=== PATIENT | female | born 1955 | race Two or more races ===

== ENCOUNTER 2017-06-26 11:39 | Emergency (ER) | payer SELFPAY ==
[~2017-06-26] VITALS: Ht 160 cm; Wt 65.8 kg
[2017-06-26 12:12] VITALS: BP 178/91
[2017-06-26] MEDS ORDERED: DOXY100C2 PO (12:13)
--- NOTE | 2017-06-26 12:13 | PHYS DOC ---
Past Medical History Past Medical History: Arthritis, Diabetes-Type II Past Surgical History: No Surgical History Alcohol Use: None Drug Use: None Adult General Chief Complaint Chief Complaint: Congestion HPI HPI Patient is a 61 year old female presents to the emergency department stating that she has had nasal congestion for the last 2 weeks. She has taken Sudafed with no relief. Patient does have a history of high blood pressure however patient it has been did not know the medications she is on. Patient is Burmese- speaking only. is interpreting. He states that she has had a low-grade fever of 100 for the last 2 days. He denies any nausea vomiting. Review of Systems Review of Systems Constitutional: Denies fever or chills [] Eyes: Denies change in visual acuity, redness, or eye pain [] HENT: nasal congestion denies sore throat [] Respiratory: Denies cough or shortness of breath [] Cardiovascular: No additional information not addressed in HPI [] GI: Denies abdominal pain, nausea, vomiting, bloody stools or diarrhea [] : Denies dysuria or hematuria [] Musculoskeletal: Denies back pain or joint pain [] Integument: Denies rash or skin lesions [] Neurologic: Denies headache, focal weakness or sensory changes [] Endocrine: Denies polyuria or polydipsia [] Allergies Allergies Allergies Coded Allergies Type Severity Reaction Last Updated Verified No Known Drug Allergies 08/25/14 No Physical Exam Physical Exam Constitutional: Well developed, well nourished, no acute distress, non-toxic appearance. [] HENT: Normocephalic, atraumatic, bilateral external ears normal, oropharynx moist, no oral exudates, nose normal. Bilateral tympanic membranes appear to be normal. Patient with frontal and maxillary sinus pressure bilaterally. Throat with postnasal drip. No erythematous no exudate noted. Eyes: PERRLA, EOMI, conjunctiva normal, no discharge. [] Neck: Normal range of motion, no tenderness, supple, no stridor. [] Cardiovascular:Heart rate regular rhythm, no murmur [] Lungs & Thorax: Bilateral breath sounds clear to auscultation [] Skin: Warm, dry, no erythema, no rash. [] Back: No tenderness Extremities: No tenderness, no cyanosis, no clubbing, ROM intact, no edema. [] Neurologic: Alert and oriented X 3, normal motor function, normal sensory function, no focal deficits noted. [] Psychologic: Affect normal, judgement normal, mood normal. [] EKG EKG [] Radiology/Procedures Radiology/Procedures [] Course & Med Decision Making Course & Med Decision Making Pertinent Labs and Imaging studies reviewed. (See chart for details) Patient will be discharged home with prescription for doxycycline. Recommended Sudafed and Mucinex DM [id number] recommended plenty of fluids. Tylenol or ibuprofen for fever chills or generalized body aches and discomfort. Recommended following up with her primary care physician in the next week. Since symptoms to return back to emergency department as been provided. All questions and concerns been answered at patient's bedside. [] Dragon Disclaimer Dragon Disclaimer This electronic medical record was generated, in whole or in part, using a voice recognition dictation system. Departure Departure Impression: Primary Impression: Sinusitis Disposition: HOME, SELF-CARE Condition: STABLE Referrals: SUMMER THOMPSON MD (PCP) Patient Instructions: Sinusitis, [id number] Additional Instructions: Activity as tolerated. Medication as prescribed. Sudafed and Mucinex DM as directed by medical csr [id number]. Drink plenty of fluids. Follow-up to primary care physician in the next week. Return back to emergency prior signs symptoms of become worse. Scripts Doxycycline Hyclate (DOXYCYCLINE HYCLATE) 100 Mg Capsule 1 CAP PO BID, #20 CAP Prov: OLI HASTINGS APRN 06/26/17 Problem Qualifiers Primary Impression: Sinusitis Sinusitis location: unspecified location Chronicity: unspecified Qualified Codes: J32.9 - Chronic sinusitis, unspecified OLI HASTINGS UNDER TRIMMER Jun 26, 2017 12:13
== END 2017-06-26 12:20 | disposition home or self-care (01) ==
LOC: ER 11:39
DX: J32.0 Chronic maxillary sinusitis (principal); J32.1 Chronic frontal sinusitis; M19.90 Unspecified osteoarthritis, unspecified site; E11.9 Type 2 diabetes mellitus without complications
CPT/HCPCS: 99283

== ENCOUNTER 2019-01-01 14:20 | Emergency (ER) | payer OTHER ==
[~2019-01-01] VITALS: Ht 160 cm; Wt 62.1 kg
[~2019-01-01 14:20] MED LIST: DOXY100C2 PO
--- NOTE | 2019-01-01 15:39 | PHYS DOC ---
Past Medical History Past Medical History: Arthritis, Diabetes-Type II Past Surgical History: No Surgical History Alcohol Use: None Drug Use: None Adult General Chief Complaint Chief Complaint: FLU SYMPTOM HPI HPI 63-year-old female presents to ER via POV with complaints of flulike illness is been ongoing for the past 3-4 days. Patient speaks primarily Anguillan and her is at bedside translating. Per him patient has been sick the past 3-4 days with flulike illness which has included body aches, nonproductive cough, intermittent headache, and upper abdominal pain which increases with coughing episodes. He denies patient with nausea vomiting or diarrhea. Patient had regular bowel movement this morning. He denies patient has had urinary symptoms or fever. He reports patient has had generalized fatigue. He denies recent travel. He reports he had similar flulike illness last week. He states patient has had decreased appetite and fluid intake. She denies any chest pain, palpitations, or shortness of air. On arrival patient was ambulatory to room 14 from waiting room. Patient had Accu -Chek of 52 and so juice was provided. Patient was able to drink the juice denying any nausea. Patient reports history of diabetes reporting she is on oral medications and insulin. She reports she took her regular dose of insulin today and her added she had not eaten due to illness. Review of Systems Review of Systems Constitutional: Denies fever or chills. Reports generalized fatigue and body aches Eyes: Denies change in visual acuity, redness, or eye pain [] HENT: Reports sinus congestion/sore throat. Denies earache Respiratory: Denies shortness of breath. Reports nonprod. cough Cardiovascular: Denies CP/palpitations GI: Denies nausea, vomiting, bloody stools or diarrhea. Reports upper abd pain : Denies dysuria or hematuria [] Musculoskeletal: Reports body aches w/joint aches- denies difficulty with ROM of neck/back Integument: Denies rash, swelling or skin lesions [] Neurologic: Denies focal weakness or sensory changes. Reports diffuse PETERS without photosensitivity/floaters Endocrine: Denies polyuria or polydipsia [] All other systems were reviewed and found to be within normal limits, except as documented in this note. Current Medications Current Medications Current Medications Medications (Trade) Dose Ordered Sig/Marcella Start Time Stop Time Status Last Admin Dose Admin Ceftriaxone Sodium (Rocephin) 1 gm 1X ONCE 01/01/19 17:00 01/01/19 17:01 DC 01/01/19 17:37 1 GM Ibuprofen (Motrin) 600 mg 1X ONCE 01/01/19 15:45 01/01/19 15:46 DC 01/01/19 16:20 600 MG Sodium Chloride 1,000 ml @ 1,000 mls/hr 1X ONCE 01/01/19 15:45 01/01/19 16:44 DC 01/01/19 15:45 1,000 MLS/HR Allergies Allergies Allergies Coded Allergies Type Severity Reaction Last Updated Verified No Known Drug Allergies 08/25/14 No Physical Exam Physical Exam Constitutional: Well developed, well nourished, mild distress- fatigued appearance, non-toxic appearance. Answering questions appropr. per her husb. who is translating as pt speaks minimal Burkinan HENT: Normocephalic, atraumatic, bilateral ears normal, mucous membranes pink/ dry, no pharyngeal erythema/swelling/exudate, nose normal. [] Eyes: 3mm PERRLA, EOMI- no pain w/eye movements, no nystagmus, conjunctiva normal, no discharge. [] Neck: Normal range of motion, no tenderness- no nuchal rigidity, supple, no stridor/gross adenopathy Cardiovascular: Heart rate regular rhythm, no murmur [] Lungs & Thorax: Bilateral breath sounds clear to auscultation. Resp. equal/ nonlabored. Speaking in full sentences Abdomen: Bowel sounds normal, soft- no distention or rigidity, diffuse tenderness across upper abd. no specific area. No rebound tenderness, no masses , no pulsatile masses. [] Skin: Warm, dry, no erythema, no rash. [] Back: No tenderness- full ROM, no CVA tenderness. [] Extremities: No tenderness, no cyanosis, no clubbing, ROM intact, no edema. [] Neurologic: Alert and oriented X 3, normal motor function, normal sensory function, no focal deficits noted. [] Psychologic: Affect normal, judgement normal, mood normal. [] Current Patient Data Vital Signs Vital Signs Date Time Temp Pulse Resp B/P (MAP) Pulse Ox O2 Delivery O2 Flow Rate FiO2 01/01/19 17:27 80 21 144/70 (94) 96 Room Air 3/23/19 15:10 98.7 98.7 Lab Values Laboratory Tests Test 01/01/19 15:21 01/01/19 15:52 01/01/19 15:53 01/01/19 16:00 Glucose (Fingerstick) 52 mg/dL (70-99) L Urine Collection Type Unknown Urine Color Yellow Urine Clarity Clear Urine pH 6.5 Urine Specific [place] 1.010 Urine Protein Negative mg/dL (NEG-TRACE) Urine Glucose (UA) Negative mg/dL (NEG) Urine Ketones (Stick) Negative mg/dL (NEG) Urine Blood Negative (NEG) Urine Nitrite Positive (NEG) Urine Bilirubin Negative (NEG) Urine Urobilinogen Dipstick 0.2 mg/dL (0.2 mg/dL) Urine Leukocyte Esterase Small (NEG) Urine RBC 0 /HPF (0-2) Urine WBC >40 /HPF (0-4) Urine Squamous Epithelial Cells Mod /LPF Urine Bacteria Many /HPF (0-FEW) Urine Mucus Slight /LPF Influenza Type A Antigen Negative (NEGATIVE) Influenza Type B Antigen Negative (NEGATIVE) White Blood Count 15.4 x10^3/uL (4.0-11.0) H Red Blood Count 5.08 x10^6/uL (3.50-5.40) Hemoglobin 14.5 g/dL (12.0-15.5) Hematocrit 43.2 % (36.0-47.0) Mean Corpuscular Volume 85 fL (79-100) Mean Corpuscular Hemoglobin 29 pg (25-35) Mean Corpuscular Hemoglobin Concent 34 g/dL (31-37) Red Cell Distribution Width 13.3 % (11.5-14.5) Platelet Count 299 x10^3/uL (140-400) Neutrophils (%) (Auto) 44 % (31-73) Lymphocytes (%) (Auto) 40 % (24-48) Monocytes (%) (Auto) 12 % (0-9) H Eosinophils (%) (Auto) 4 % (0-3) H Basophils (%) (Auto) 0 % (0-3) Neutrophils # (Auto) 6.8 x10^3uL (1.8-7.7) Lymphocytes # (Auto) 6.2 x10^3/uL (1.0-4.8) H Monocytes # (Auto) 1.8 x10^3/uL (0.0-1.1) H Eosinophils # (Auto) 0.6 x10^3/uL (0.0-0.7) Basophils # (Auto) 0.1 x10^3/uL (0.0-0.2) Sodium Level 140 mmol/L (136-145) Potassium Level 3.4 mmol/L (3.5-5.1) L Chloride Level 104 mmol/L (98-107) Carbon Dioxide Level 27 mmol/L (21-32) Anion Gap 9 (6-14) Blood Urea Nitrogen 17 mg/dL (7-20) Creatinine 1.3 mg/dL (0.6-1.0) H Estimated GFR (Cockcroft-Gault) 41.6 BUN/Creatinine Ratio 13 (6-20) Glucose Level 84 mg/dL (70-99) Calcium Level 9.4 mg/dL (8.5-10.1) Magnesium Level 1.9 mg/dL (1.8-2.4) Total Bilirubin 0.2 mg/dL (0.2-1.0) Aspartate Amino Transferase (AST) 17 U/L (15-37) Alanine Aminotransferase (ALT) 24 U/L (14-59) Alkaline Phosphatase 124 U/L (46-116) H Troponin I Quantitative < 0.017 ng/mL (0.000-0.055) Total Protein 7.5 g/dL (6.4-8.2) Albumin 3.5 g/dL (3.4-5.0) Albumin/Globulin Ratio 0.9 (1.0-1.7) L Test 01/01/19 17:15 Glucose (Fingerstick) 94 mg/dL (70-99) Laboratory Tests 01/01/19 16:00 Laboratory Tests 01/01/19 16:00 EKG EKG EKG obtained 01/01/19 at [address] Turner Sinus rhythm Rate 91 No STEMI Radiology/Procedures Radiology/Procedures PROCEDURE: CHEST AP ONLY Chest radiograph 01/01/2019 3:31 PM INDICATION: Cough COMPARISON: None available TECHNIQUE: Portable upright frontal view of the chest is provided. FINDINGS: The cardiomediastinal silhouette is within normal limits. There are no pleural effusions. There is no pulmonary vascular congestion. There is no pneumothorax. The lungs are clear. No significant osseous abnormality is identified. IMPRESSION: No acute cardiopulmonary process. Electronically signed by: Melanie Larios MD (01/01/2019 4:03 PM) [facility] [place] DICTATED and SIGNED BY: MELANIE LARIOS MD DATE: 01/01/19 1604 Course & Med Decision Making Course & Med Decision Making Pertinent Labs and Imaging studies reviewed. (See chart for details) 1655: On reevaluation patient remains fatigued in appearance. She continues to have nonproductive intermittent cough. Discussed test results with UTI and plans for IV Rocephin. Patient was negative flu. Patient's blood sugar was 84 on her labs after drinking juice. Patient's states she had been started on 10 units of insulin with meals and 30 units at bedtime just within the past couple of weeks as her BSs had been 500-600. Patient reports she had eaten breakfast and lunch. Pt continues to deny CP/SOA. 1745: Reevaluation patient reports she is feeling much better following txs. She is smiling and sitting up in bed- husb. reports she is doing much better. Patient was given IV fluids, ibuprofen, and dose of Rocephin for UTI. Patient had chest x-ray which was negative for acute findings. She was negative for flu. WBCs were elevated at 15.4 no bands. EKG was negative for acute ST elevation or STEMI and troponin was <0.017. Patient reports she is feeling comfortable with home discharge and is ready to leave as she is hungry. She reports PETERS subsided and currently is denying any pain. Will provide prescription for Keflex for UTI and advised patient on follow-up with her primary care physician this week for reevaluation. Discussed with patient's husb. having flulike illness last week she is probably has similar flu like illness along with UTI. Discussed Tylenol and/or ibuprofen as needed. Patient encouraged to increase fluid intake and eat well-balanced meals. Pt had K+ of 3.4- no replacement while in the ER as pt plans to eat after being discharged. Patient encouraged to continue monitoring her blood sugar and if feeling more fatigued to recheck as her initial blood sugar was 52 when she arrived to ER. Patient has been eating and drinking without complaints of nausea while in the ER and last check blood sugar was 94. Education provided on signs and symptoms to return to ER. Discharge instructions were discussed. Dragon Disclaimer Dragon Disclaimer This electronic medical record was generated, in whole or in part, using a voice recognition dictation system. Departure Departure Impression: Primary Impression: UTI (urinary tract infection) Additional Impression: Flu-like symptoms Disposition: HOME, SELF-CARE Condition: STABLE Referrals: SUMMER THOMPSON MD (PCP) Patient Instructions: Hypoglycemia (Low Blood Sugar), Urinary Tract Infection, Viral Syndrome Additional Instructions: Continue monitoring your blood sugar and if he started feeling more fatigued or have any concerns recheck the blood sugar again. Increase water intake and eat well-balanced meals. Follow-up with your primary care physician this week for reevaluation or return to the emergency department if symptoms worsen. Tylenol and/or ibuprofen as directed on container as needed for pain and fever control. Scripts Cephalexin (KEFLEX) 500 Mg Capsule 1 CAP PO BID, #14 CAP 0 Refills Prov: CHALINO KAY APRN 01/01/19 Problem Qualifiers CHALINO KAY APRN Jan 01, 2019 15:39
[2019-01-01] MEDS ORDERED: IV NORMAL SALINE 1000ML BAG 1,000 ML IV ONE (15:45)
[2019-01-01] MEDS ORDERED: IBUPROFEN 200 MG TABLET. PO ONE (15:45)
--- NOTE | 2019-01-01 16:05 | RAD ---
Chest radiograph 01/01/2019 3:31 PM INDICATION: Cough COMPARISON: None available TECHNIQUE: Portable upright frontal view of the chest is provided. FINDINGS: The cardiomediastinal silhouette is within normal limits. There are no pleural effusions. There is no pulmonary vascular congestion. There is no pneumothorax. The lungs are clear. No significant osseous abnormality is identified. IMPRESSION: No acute cardiopulmonary process. Electronically signed by: Reyna Dominguez MD (01/01/2019 4:03 PM) [facility] [place]
[2019-01-01 16:15] LABS: BASO # 0.1 x10^3/uL (0.0-0.2); BASO % 0 % (0-3); EOS # 0.6 x10^3/uL (0.0-0.7); EOS % 4 % (0-3); HEMATOCRIT 43.2 % (36.0-47.0); HEMOGLOBIN 14.5 g/dL (12.0-15.5); LYMPH # 6.2 x10^3/uL (1.0-4.8); LYMPH % 40 % (24-48); MEAN CORPUSCULAR HEMOGLOBIN 29 pg (25-35); MEAN CORPUSCULAR HGB CONC 34 g/dL (31-37); MEAN CORPUSCULAR VOLUME 85 fL (79-100); MONO # 1.8 x10^3/uL (0.0-1.1); MONO % 12 % (0-9); NEUT # 6.8 x10^3uL (1.8-7.7); NEUT % 44 % (31-73); PLATELET COUNT 299 x10^3/uL (140-400); RED BLOOD COUNT 5.08 x10^6/uL (3.50-5.40); RED CELL DISTRIBUTION WIDTH 13.3 % (11.5-14.5); WHITE BLOOD COUNT 15.4 x10^3/uL (4.0-11.0)
[2019-01-01 16:22] LABS: BILIRUBIN,URINE NEGATIVE (NEG); CLARITY,URINE CLEAR; COLOR,URINE YELLOW; NITRITE,URINE POSITIVE (NEG); PH,URINE 6.5; PROTEIN,URINE NEGATIVE (NEG-TRACE); UROBILINOGEN,URINE 0.2 mg/dL (0.2 mg/dL)
[2019-01-01 16:25] LABS: CALCIUM 9.4 mg/dL (8.5-10.1); CREATININE 1.3 mg/dL (0.6-1.0); GFR 41.6; POTASSIUM 3.4 mmol/L (3.5-5.1)
[2019-01-01 16:29] LABS: SQUAMOUS EPITHELIAL CELL,UR MOD /LPF
[2019-01-01 16:30] LABS: BACTERIA,URINE MANY /HPF (0-FEW); RBC,URINE 0 /HPF (0-2); WBC,URINE >40 /HPF (0-4)
[2019-01-01 16:31] LABS: ALBUMIN 3.5 g/dL (3.4-5.0); ALBUMIN/GLOBULIN RATIO 0.9 (1.0-1.7); MAGNESIUM 1.9 mg/dL (1.8-2.4); TOTAL BILIRUBIN 0.2 mg/dL (0.2-1.0); TOTAL PROTEIN 7.5 g/dL (6.4-8.2)
[2019-01-01 16:45] LABS: INFLUENZA A PATIENT NEGATIVE (NEGATIVE); INFLUENZA B PATIENT NEGATIVE (NEGATIVE)
[2019-01-01] MEDS ORDERED: cefTRIAXone IV Push 1 GM VIAL. IVP ONE (17:00)
[2019-01-01 17:27] VITALS: BP 144/70
[2019-01-01] MEDS ORDERED: CEPH-264 PO (17:54)
--- NOTE | 2019-01-03 13:07 | EKG ---
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
== END 2019-01-01 18:09 | disposition home or self-care (01) ==
LOC: ER 14:20
DX: N39.0 Urinary tract infection, site not specified (principal); R05 Cough; M79.10 Myalgia, unspecified site; R51 Headache; R53.83 Other fatigue; E11.9 Type 2 diabetes mellitus without complications; Z79.4 Long term (current) use of insulin
CPT/HCPCS: 36415; 71045; 80053; 81001; 82962; 83735; 84484; 85025; 87086; 87186; 87804; 93005; 96374; 99284; J0696; J7030

== ENCOUNTER 2019-06-12 10:07 | Emergency (ER) | payer OTHER ==
[~2019-06-12] VITALS: Ht 162.6 cm; Wt 62.1 kg
[~2019-06-12 10:07] MED LIST changes: +CEPH-264 PO; +FLUTICASONE 50MCG/NASAL SPRAY 16GM BOTTLE. NS ONE
[2019-06-12 10:10] VITALS: BP 179/85
--- NOTE | 2019-06-12 10:27 | PHYS DOC ---
Past Medical History Past Medical History: Arthritis, Diabetes-Type II, Hypertension Past Surgical History: No Surgical History Alcohol Use: None Drug Use: None Adult General Chief Complaint Chief Complaint: COUGH HPI HPI Patient is a 63 year old female who presents with 3 days of runny nose, congestion, right ear pressure, sore throat, and itching. No fevers or SOB Dry persistent cough. Reports hx of bronchitis. No chronic lung disease Reports she is a DM and wants a glucose check Review of Systems Review of Systems Constitutional: Denies fever or chills [] Eyes: Denies change in visual acuity, redness, or eye pain []Intermitted watery eyes/itching. HENT: c/o nasal congestion and sore throat [] Respiratory: Denies shortness of breath Intermittent. cough, dry, persistent Cardiovascular: No additional information not addressed in HPI [] GI: Denies abdominal pain, nausea, vomiting, bloody stools or diarrhea [] : Denies dysuria or hematuria [] Musculoskeletal: Denies back pain or joint pain [] Integument: Denies rash or skin lesions [] Neurologic: Denies focal weakness or sensory changes []dull frontal pressure Endocrine: Denies polyuria or polydipsia [] All other systems were reviewed and found to be within normal limits, except as documented in this note. Current Medications Current Medications Current Medications Medications (Trade) Dose Ordered Sig/Marcella Start Time Stop Time Status Last Admin Dose Admin Acetaminophen (Tylenol) 500 mg 1X ONCE 06/12/19 10:30 06/12/19 10:31 DC 06/12/19 10:32 500 MG Diphenhydramine HCl (Benadryl) 25 mg 1X ONCE 06/12/19 10:30 06/12/19 10:31 DC 06/12/19 10:32 25 MG Fluticasone Propionate (Flonase) 2 spray 1X ONCE 06/12/19 09:00 06/12/19 10:27 DC 06/12/19 10:32 2 SPRAY Allergies Allergies Allergies Coded Allergies Type Severity Reaction Last Updated Verified No Known Drug Allergies 08/25/14 No Physical Exam Physical Exam Constitutional: Well developed, well nourished, no acute distress, non-toxic appearance. [] HENT: Normocephalic, atraumatic, bilateral external ears normal, bilateral TM dull, oropharynx moist, no oral exudates, mild posterior pharynx erythema, PND, nose congestion, clear rhinorrhea Eyes: PERRLA, EOMI, conjunctiva normal, no discharge. [] Neck: Normal range of motion, no tenderness, supple, no stridor. [] Cardiovascular:Heart rate regular rhythm, no murmur [] Lungs & Thorax: Bilateral breath sounds clear to auscultation []No current cough Abdomen: Bowel sounds normal, soft, no tenderness, no masses, no pulsatile masses. [] Skin: Warm, dry, no erythema, no rash. [] Back: No tenderness, no CVA tenderness. [] Extremities: No tenderness, no cyanosis, no clubbing, ROM intact, no edema. [] Neurologic: Alert and oriented X 3, normal motor function, normal sensory function, no focal deficits noted. [] Psychologic: Affect normal, judgement normal, mood normal. [] Current Patient Data Vital Signs Vital Signs Date Time Temp Pulse Resp B/P (MAP) Pulse Ox O2 Delivery O2 Flow Rate FiO2 06/12/19 10:10 98.7 77 16 179/85 (116) 99 Room Air 98.7 Lab Values Laboratory Tests Test 06/12/19 10:31 Glucose (Fingerstick) 152 mg/dL (70-99) H EKG EKG [] Radiology/Procedures Radiology/Procedures [] Impressions: Allergic rhinitis, URI, cough Course & Med Decision Making Course & Med Decision Making Patient appears well, no fevers. Allergic rhinitis and URI, no cough on exam Lungs CTA Stable for home care OTC medications for symptoms, educated on home care fu and reasons to return to the ER Laboratory Tests Test 06/12/19 10:31 Glucose (Fingerstick) 152 mg/dL (70-99) H Pertinent Labs and Imaging studies reviewed. (See chart for details) [] Dragon Disclaimer Dragon Disclaimer This electronic medical record was generated, in whole or in part, using a voice recognition dictation system. Departure Departure Impression: Primary Impression: Allergic rhinitis Disposition: 01 HOME, SELF-CARE Condition: STABLE Referrals: SUMMER THOMPSON MD (PCP) Patient Instructions: Allergic Rhinitis, Upper Respiratory Infection, Adult Additional Instructions: Go home and rest. Motrin and Tylenol for pain or fever Over the counter Benadryl, Claritin for symptoms Albuterol as directed. Call your doctor for follow up, return for any concerns or worsening symptoms MELODY PONCE APRN Jun 12, 2019 10:27
[2019-06-12] MEDS ORDERED: ACETAMINOPHEN 500 MG TABLET PO ONE (10:30)
[2019-06-12] MEDS ORDERED: diphenhydrAMINE HCL 25 MG CAPSULE PO ONE (10:30)
== END 2019-06-12 10:50 | disposition home or self-care (01) ==
LOC: ER 10:07
DX: J30.9 Allergic rhinitis, unspecified (principal); E11.9 Type 2 diabetes mellitus without complications; I10 Essential (primary) hypertension
CPT/HCPCS: 82962; 99284; Q0163

== ENCOUNTER 2020-04-19 00:27 | Emergency (ER) | payer OTHER ==
[~2020-04-19 00:27] MED LIST changes: -FLUTICASONE 50MCG/NASAL SPRAY 16GM BOTTLE. NS ONE
== END 2020-04-19 03:40 | disposition left against medical advice (07) ==
LOC: ER 00:27
DX: M54.9 Dorsalgia, unspecified (principal); Z53.21 Procedure and treatment not carried out due to patient leaving prior to being seen by health care provider

== ENCOUNTER → 2020-05-30 | Outpatient (CLI) | payer OTHER ==
--- NOTE | 2020-06-01 10:58 | RAD ---
EXAM: BILATERAL DIGITAL SCREENING MAMMOGRAPHY. HISTORY: Routine mammographic screening. TECHNIQUE: Bilateral full field digital images were obtained in CC and MLO projections. Computer-aided detection was not available currently. COMPARISON: None available. This is interpreted as a baseline study. COMPOSITION: B. There are scattered areas of fibroglandular density. FINDINGS: There are no suspicious masses, microcalcifications or architectural distortion. The parenchymal pattern is stable. Coarse and vascular calcifications are benign. BI-RADS CATEGORY 2: Benign. RECOMMENDATION: 1. Routine screening mammography in one year. If mammography demonstrates dense breast tissue (heterogenously dense or extremely dense, category C or D), which could hide abnormalities, and if other risk factors for breast cancer have been identified, supplemental screening tests that may be suggested by the ordering physician may be of benefit. Dense breast tissue, in and of itself, is a relatively common condition. Therefore, this information is not provided to cause undue concern, but rather to raise awareness and to promote discussion with the referring physician regarding the presence of other risk factors, in addition to dense breast tissue. The results of this mammography examination is provided to the patient and referring physician. The patient should contact their referring physician if any questions or concerns exist regarding this report. PQRS compliance statement - Patient information was entered into a reminder system with a target due date for the next mammogram. "Our facility is accredited by the [employer] Mammography [employer]." Electronically signed by: Nataliya Nascimento MD (06/01/2020 10:55 AM) [id number]
== END | disposition home or self-care (01) ==
LOC: MAMMO 10:08
PROVIDERS: ATTEND Family Medicine
DX: Z12.31 Encounter for screening mammogram for malignant neoplasm of breast (principal); N64.89 Other specified disorders of breast
CPT/HCPCS: 77067

== ENCOUNTER 2021-08-28 14:36 | Emergency (ER) | payer SELFPAY ==
[~2021-08-28] VITALS: Ht 157.5 cm; Wt 70.4 kg
[~2021-08-28 14:36] MED LIST changes: -DOXY100C2 PO; +DOXY100C3 PO
[2021-08-28 16:15] LABS: BILIRUBIN,URINE NEGATIVE (NEG); CLARITY,URINE CLOUDY; COLOR,URINE YELLOW; NITRITE,URINE POSITIVE (NEG); PH,URINE 5.5 (<5.0-8.0); PROTEIN,URINE >=300 mg/dL (NEG-TRACE); UROBILINOGEN,URINE 0.2 mg/dL (0.2 mg/dL)
[2021-08-28 16:20] LABS: BACTERIA,URINE MANY /HPF (0-FEW)
[2021-08-28 16:21] LABS: RBC,URINE OCC /HPF (0-2)
--- NOTE | 2021-08-28 16:44 | PHYS DOC ---
Past Medical History Past Medical History: Arthritis, Diabetes-Type II, Hypertension Past Surgical History: No Surgical History Smoking Status: Never Smoker Alcohol Use: None Drug Use: None General Adult EDM: Chief Complaint: BACK PAIN - NO INJURY HPI: HPI: Patient is a 65-year-old female that presents today with right flank right back pain. Patient states pain started 3 days ago, she does complain of chills at night denies having a fever. Patient does have a history of diabetes, patient denies nausea vomiting and/or diarrhea, and denies dysuria Review of Systems: Review of Systems: Constitutional: chills at night, denies fever. [] Eyes: Denies change in visual acuity. [] HENT: Denies nasal congestion or sore throat. [] Respiratory: Denies cough or shortness of breath. [] Cardiovascular: Denies chest pain or edema. [] GI: Right flank right back pain, denies nausea, diarrhea, vomiting, : Denies dysuria. [] Musculoskeletal: Denies back pain or joint pain. [] Integument: Denies rash. [] Neurologic: Denies headache, focal weakness or sensory changes. [] Endocrine: Denies polyuria or polydipsia. [] Lymphatic: Denies swollen glands. [] Psychiatric: Denies depression or anxiety. [] Heart Score: C/O Chest Pain: N/A Risk Factors: Risk Factors: DM, Current or recent (<one month) smoker, HTN, HLP, family history of CAD, obesity. Risk Scores: Score 0 - 3: 2.5% MACE over next 6 weeks - Discharge Home Score 4 - 6: 20.3% MACE over next 6 weeks - Admit for Clinical Observation Score 7 - 10: 72.7% MACE over next 6 weeks - Early Invasive Strategies Allergies: Allergies: Allergies Coded Allergies Type Severity Reaction Last Updated Verified No Known Drug Allergies 08/25/14 No Physical Exam: PE: Constitutional: Well developed, well nourished, no acute distress, non-toxic appearance. [] HENT: Normocephalic, atraumatic, bilateral external ears normal, oropharynx moist, no oral exudates, nose normal. [] Eyes: PERRLA, EOMI, conjunctiva normal, no discharge. [] Neck: Normal range of motion, no tenderness, supple, no stridor. [] Cardiovascular:Heart rate regular rhythm, no murmur [] Lungs & Thorax: Bilateral breath sounds clear to auscultation [] Abdomen: Abdomen soft, patient complains of pain with palpation on the right flank right back side, bowel sounds are positive denies dysuria [] Skin: Warm, dry, no erythema, no rash. [] Back: No tenderness, no CVA tenderness. [] Extremities: No tenderness, no cyanosis, no clubbing, ROM intact, no edema. [] Neurologic: Alert and oriented X 3, normal motor function, normal sensory function, no focal deficits noted. [] Psychologic: Affect normal, judgement normal, mood normal. [] Current Patient Data: Labs: Laboratory Tests Test 08/28/21 16:00 08/28/21 16:53 Urine Collection Type Unknown Urine Color Yellow Urine Clarity Cloudy Urine pH 5.5 Urine Specific [place] 1.020 Urine Protein >=300 mg/dL Urine Glucose (UA) Negative mg/dL Urine Ketones (Stick) Negative mg/dL Urine Blood Trace Urine Nitrite Positive Urine Bilirubin Negative Urine Urobilinogen Dipstick 0.2 mg/dL Urine Leukocyte Esterase Negative Urine RBC Occ /HPF Urine WBC 11-20 /HPF Urine Squamous Epithelial Cells Mod /LPF Urine Bacteria Many /HPF Urine Mucus Mod /LPF White Blood Count 9.5 x10^3/uL Red Blood Count 4.78 x10^6/uL Hemoglobin 13.7 g/dL Hematocrit 40.5 % Mean Corpuscular Volume 85 fL Mean Corpuscular Hemoglobin 29 pg Mean Corpuscular Hemoglobin Concent 34 g/dL Red Cell Distribution Width 14.0 % Platelet Count 310 x10^3/uL Neutrophils (%) (Auto) 52 % Lymphocytes (%) (Auto) 35 % Monocytes (%) (Auto) 10 % Eosinophils (%) (Auto) 2 % Basophils (%) (Auto) 1 % Neutrophils # (Auto) 5.0 x10^3/uL Lymphocytes # (Auto) 3.3 x10^3/uL Monocytes # (Auto) 0.9 x10^3/uL Eosinophils # (Auto) 0.2 x10^3/uL Basophils # (Auto) 0.1 x10^3/uL Sodium Level 140 mmol/L Potassium Level 3.7 mmol/L Chloride Level 106 mmol/L Carbon Dioxide Level 30 mmol/L Anion Gap 4 Blood Urea Nitrogen 15 mg/dL Creatinine 0.9 mg/dL Estimated GFR (Cockcroft-Gault) 63.2 BUN/Creatinine Ratio 17 Glucose Level 70 mg/dL Calcium Level 8.6 mg/dL Total Bilirubin 0.2 mg/dL Aspartate Amino Transf (AST/SGOT) 19 U/L Alanine Aminotransferase (ALT/SGPT) 32 U/L Alkaline Phosphatase 114 U/L Total Protein 6.9 g/dL Albumin 3.1 g/dL Albumin/Globulin Ratio 0.8 Lipase 82 U/L Current Medications Medications (Trade) Dose Ordered Sig/Marcella Route PRN Reason Start Time Stop Time Status Last Admin Dose Admin Sodium Chloride 1,000 ml @ 500 mls/hr 1X ONCE IV 08/28/21 16:45 08/28/21 18:44 Fentanyl Citrate (Fentanyl 2ml Vial) 50 mcg 1X ONCE IVP 08/28/21 16:45 08/28/21 16:50 DC Laboratory Tests Test 08/28/21 16:00 Urine Collection Type Unknown Urine Color Yellow Urine Clarity Cloudy Urine pH 5.5 (<5.0-8.0) Urine Specific [place] 1.020 (1.000-1.030) Urine Protein >=300 mg/dL (NEG-TRACE) Urine Glucose (UA) Negative mg/dL (NEG) Urine Ketones (Stick) Negative mg/dL (NEG) Urine Blood Trace (NEG) Urine Nitrite Positive (NEG) Urine Bilirubin Negative (NEG) Urine Urobilinogen Dipstick 0.2 mg/dL (0.2 mg/dL) Urine Leukocyte Esterase Negative (NEG) Urine RBC Occ /HPF (0-2) Urine WBC 11-20 /HPF (0-4) Urine Squamous Epithelial Cells Mod /LPF Urine Bacteria Many /HPF (0-FEW) Urine Mucus Mod /LPF Vital Signs: Vital Signs Date Time Temp Pulse Resp B/P (MAP) Pulse Ox O2 Delivery O2 Flow Rate FiO2 08/28/21 18:15 75 190/94 (126) 98 Room Air 08/28/21 17:54 78 199/85 (123) 95 Room Air 08/28/21 17:43 16 98 Room Air 08/28/21 17:24 82 151/87 (108) 99 Room Air 08/28/21 16:54 82 171/93 (119) 99 Room Air 08/28/21 16:18 97.5 76 18 158/88 (111) 97 Room Air 97.5 Vital Signs Date Time Temp Pulse Resp B/P (MAP) Pulse Ox O2 Delivery O2 Flow Rate FiO2 08/28/21 16:18 97.5 76 18 158/88 (111) 97 Room Air 97.5 EKG: EKG: [] Radiology/Procedures: Radiology/Procedures: [] Course & Med Decision Making: Course & Med Decision Making Pertinent Labs and Imaging studies reviewed. (See chart for details) 1730 patient reassessed patient was resting with eyes closed heart rate was 73, patient woke up says she feels nauseated and that she feels like her blood sugar is getting low. We will have someone check her blood sugar and will also give her some Zofran. Patient will be sent home, will send home with Cipro for treatment of her pyelonephritis with strict instructions to return for increase pain, fever or chills, inability to keep liquids down, her blood sugars get to be too high. Patient will be given a list of clinics here in the area to follow-up with in 5 to 7 days if needed. Patient states she does not have any insurance will also give her a good Rx card so that she may get the prescription filled [] 1734 blood sugar was found to be 59 patient was given crackers and peanut butter Dragon Disclaimer: Dragon Disclaimer: This electronic medical record was generated, in whole or in part, using a voice recognition dictation system. Departure Departure Impression: Primary Impression: Pyelonephritis Disposition: HOME / SELF CARE / HOMELESS Condition: STABLE Referrals: SUMMER THOMPSON MD (PCP) Patient Instructions: Pyelonephritis, Adult Additional Instructions: Take Cipro 1 tablet twice daily for 7 days Increase by mouth fluid especially water Return to the emergency department for increasing pain, fever or chills, nausea vomiting, inability to keep fluids down or unable to take antibiotics. Follow-up with one of the listed clinics on the brochure that was given to you in 5 to 7 days for further management Scripts Ciprofloxacin Hcl (CIPRO) 500 Mg Tablet 500 MG PO BID for UTI for 7 Days, #14 TAB 0 Refills Prov: CHIQUITA CONTEH APRN 08/28/21 CHIQUITA CONTEH [employer] Aug 28, 2021 16:44
[2021-08-28] MEDS ORDERED: fentaNYL PF VIAL 100 MCG/2 ML VIAL IVP ONE (16:45)
[2021-08-28] MEDS ORDERED: IV NORMAL SALINE 1000ML BAG 1,000 ML IV ONE (16:45)
[2021-08-28 17:04] LABS: BASO # 0.1 x10^3/uL (0.0-0.2); BASO % 1 % (0-3); EOS # 0.2 x10^3/uL (0.0-0.7); EOS % 2 % (0-3); HEMATOCRIT 40.5 % (36.0-47.0); HEMOGLOBIN 13.7 g/dL (12.0-15.5); LYMPH # 3.3 x10^3/uL (1.0-4.8); LYMPH % 35 % (24-48); MEAN CORPUSCULAR HEMOGLOBIN 29 pg (25-35); MEAN CORPUSCULAR HGB CONC 34 g/dL (31-37); MEAN CORPUSCULAR VOLUME 85 fL (79-100); MONO # 0.9 x10^3/uL (0.0-1.1); MONO % 10 % (0-9); NEUT % 52 % (31-73); PLATELET COUNT 310 x10^3/uL (140-400); RED BLOOD COUNT 4.78 x10^6/uL (3.50-5.40); WHITE BLOOD COUNT 9.5 x10^3/uL (4.0-11.0)
[2021-08-28 17:15] LABS: CALCIUM 8.6 mg/dL (8.5-10.1); CREATININE 0.9 mg/dL (0.6-1.0); GFR 63.2; POTASSIUM 3.7 mmol/L (3.5-5.1)
[2021-08-28 17:21] LABS: ALBUMIN 3.1 g/dL (3.4-5.0); ALBUMIN/GLOBULIN RATIO 0.8 (1.0-1.7); TOTAL BILIRUBIN 0.2 mg/dL (0.2-1.0); TOTAL PROTEIN 6.9 g/dL (6.4-8.2)
[2021-08-28] MEDS ORDERED: ONDANSETRON PF 4 MG/2 ML VIAL. IVP ONE (17:30)
[2021-08-28] MEDS ORDERED: CIPR500T94 PO (17:43)
[2021-08-28 18:15] VITALS: BP 190/94
== END 2021-08-28 18:15 | disposition home or self-care (01) ==
LOC: ER 14:36
DX: N12 Tubulo-interstitial nephritis, not specified as acute or chronic (principal); E11.9 Type 2 diabetes mellitus without complications; I10 Essential (primary) hypertension
CPT/HCPCS: 36415; 80053; 81001; 82962; 83690; 85025; 87077; 87086; 87186; 96361; 96374; 96375; 99285; J2405; J3010; J7030